=== PATIENT | male | born 1970 | race Caucasian/White ===

== ENCOUNTER 2019-04-29 13:36 | Observation (INO) ==
[2019-04-29] MEDS ORDERED: PIPERACILLIN/TAZOBACTAM 3,375 MG in SODIUM CHLORIDE 0.9% 100 ML IV STA (15:01)
[2019-04-29] MEDS ORDERED: methylPREDNISolone SOD SUC 125 MG/2 ML VIAL IV STA (15:01)
[2019-04-29] MEDS ORDERED: cefTRIAXone 1,000 MG in SODIUM CHLORIDE 0.9% 100 ML IV STA (15:18)
[2019-04-29] MEDS ORDERED: cefTRIAXone 1,000 MG in SYRINGE 1 EACH IV STA (15:21)
[2019-04-29] MEDS ORDERED: SODIUM CHLORIDE 0.9% 100 ML IV ONE (15:23)
[2019-04-29 15:28] LABS: Basophils # 0.1 10*3/uL (0.0-0.2); Basophils % 0.4 % (0.0-0.8); Eosinophils % 0.1 % (0.00-10.9); Hematocrit 46.7 VOL% (42.0-52.0); Immature Granulocytes % 1.2 %; Immature Granulocytes Absolute 0.18 #; Lymphocytes % 13.2 % (21.2-54.2); Mean Corpuscular HGB Conc 34.3 GM/DL (32-36); Mean Corpuscular Volume 90.2 FL (87-102); Mean Platelet Volume 10.8 FL (9.6-12.0); Monocytes % 4.8 % (1.7-12.7); Neutrophils % 80.3 % (38.7-73.9); Platelet Count 315 T/CUMM (130-400); Red Blood Count 5.18 MC/CUMM (3.8-5.5); Red Cell Distribution Width 13.4 % (9.3-17.3); White Blood Count 14.9 T/CUMM (4-12)
[2019-04-29 15:56] LABS: Albumin 4.1 G/DL (3.4-5.0); Bilirubin,Total 0.8 MG/DL (0.2-1.0); Calcium 9.1 MG/DL (8.5-10.1); Osmolality,Calculated 273.7 MOS/KG (273-304); Total Protein 8.4 G/DL (6.4-8.3)
[2019-04-29] MEDS ORDERED: CLINDAMYCIN INJ 300 MG in SODIUM CHLORIDE 0.9% 100 ML IV STA (16:28)
[2019-04-29] MEDS ORDERED: CLINDAMYCIN INJ 0 ML IV ONE (16:43)
[2019-04-29] MEDS ORDERED: ONDANSETRON 4 MG/2 ML VIAL IV PRN (17:36)
[2019-04-29] MEDS: SODIUM CHLORIDE 0.9% 1,000 ML IV SCH (20:58)
[2019-04-29] MEDS ORDERED: FLUCONAZOLE 40 MG/ML 35 ML/BOTTLE PO SCH (21:00)
[2019-04-29] MEDS: CLINDAMYCIN INJ 300 MG in PREMIX 1 EACH IV SCH (23:14)
[2019-04-29] MEDS: methylPREDNISolone SOD SUC 40 MG/1 ML VIAL IV SCH (23:15)
[2019-04-30 03:55] LABS: Basophils # 0.1 10*3/uL (0.0-0.2); Basophils % 0.3 % (0.0-0.8); Hematocrit 45.4 VOL% (42.0-52.0); Hemoglobin 15.2 GM/DL (14.0-18.0); Immature Granulocytes % 1.5 %; Immature Granulocytes Absolute 0.28 #; Lymphocytes % 10.4 % (21.2-54.2); Mean Corpuscular HGB Conc 33.5 GM/DL (32-36); Mean Platelet Volume 11.4 FL (9.6-12.0); Monocytes % 3.4 % (1.7-12.7); Neutrophils % 84.4 % (38.7-73.9); Platelet Count 307 T/CUMM (130-400); Red Blood Count 4.88 MC/CUMM (3.8-5.5); Red Cell Distribution Width 13.4 % (9.3-17.3); White Blood Count 19.2 T/CUMM (4-12)
[2019-04-30] MEDS: CLINDAMYCIN INJ 300 MG in PREMIX 1 EACH IV SCH ×2 (05:22→10:32)
[2019-04-30] MEDS: methylPREDNISolone SOD SUC 40 MG/1 ML VIAL IV SCH ×2 (06:28→15:12)
[2019-04-30 07:51] LABS: Calcium 8.9 MG/DL (8.5-10.1); Osmolality,Calculated 274.7 MOS/KG (273-304)
[2019-04-30] MEDS ORDERED: FLUCONAZOLE 40 MG/ML 35 ML/BOTTLE PO SCH ×2 (09:00)
[2019-04-30] MEDS ORDERED: NICOTINE 21 MG/24 HR PATCH TRANSDERM SCH (09:00)
[2019-04-30] MEDS: SODIUM CHLORIDE 0.9% 1,000 ML IV SCH (10:17)
[2019-04-30] MEDS ORDERED: clonazePAM 0.5 MG TABLET PO PRN (10:46)
[2019-04-30] MEDS ORDERED: tiZANidine 4 MG TABLET PO PRN (10:46)
[2019-04-30] MEDS ORDERED: BENZONATATE 100 MG CAPSULE PO PRN (10:46)
[2019-04-30 11:35] VITALS: BP 152/80
[2019-04-30] MEDS ORDERED: PANTOPRAZOLE 20 MG TABLET PO SCH (16:30)
[2019-04-30] MEDS ORDERED: SERTRALINE 50 MG TABLET PO SCH (21:00)
[2019-05-01] MEDS ORDERED: LEVOTHYROXINE 25 MCG TABLET PO SCH (06:30)
[2019-05-01] MEDS ORDERED: CETIRIZINE 10 MG TABLET PO SCH (09:00)
[2019-05-01] MEDS ORDERED: allopurinoL 100 MG TABLET PO SCH (09:00)
[2019-05-01] MEDS ORDERED: ROSUVASTATIN 20 MG TABLET PO SCH (09:00)
[2019-05-01] MEDS ORDERED: OMEGA 3 ACID ETHYL ESTERS 1 GM CAPSULE PO SCH (09:00)
[2019-05-01] MEDS ORDERED: ARIPiprazole 5 MG TABLET PO SCH (09:00)
[2019-05-01] MEDS ORDERED: lisinopriL 10 MG TABLET PO SCH (09:00)
== END 2019-04-30 16:00 | disposition home or self-care (01) ==
LOC: N.ED 13:36 → N.EDINP 13:36 → N.2W 18:37
PROVIDERS: ADMIT Internal Medicine; ATTEND Internal Medicine